=== PATIENT | female | born 1985 | race Caucasian/White ===

== ENCOUNTER 2016-07-27 22:08 | Emergency (ER) | payer OTHER ==
[2016-07-27 22:28] VITALS: BP 146/92; PULSE 75; RESP 18; TEMP 97.9; O2SAT 100
== END 2016-07-27 23:35 | disposition left against medical advice (07) | DRG 951 ==
LOC: ED 22:08
DX: Z53.9 Procedure and treatment not carried out, unspecified reason (principal)
CPT/HCPCS: 99282

== ENCOUNTER 2016-12-06 20:57 | Emergency (ER) | payer OTHER ==
[2016-12-06 21:21] VITALS: RESP 18
[2016-12-06 21:40] VITALS: TEMP 97.4; O2SAT 100
[2016-12-06 21:58] VITALS: BP 116/65; PULSE 77
== END 2016-12-06 22:03 | disposition home or self-care (01) ==
LOC: ED 20:57
DX: R00.2 Palpitations (principal)
CPT/HCPCS: 93005; 99282; 99283

== ENCOUNTER 2018-02-09 10:02 | Outpatient (CLI) | payer OTHER ==
[2016-12-06 21:40] VITALS: O2SAT 100
== END 2018-02-09 10:03 | disposition home or self-care (01) ==
LOC: CONVCARE 10:02
PROVIDERS: ATTEND Orthopaedic Surgery
DX: S92.352D Displaced fracture of fifth metatarsal bone, left foot, subsequent encounter for fracture with routine healing (principal)
CPT/HCPCS: 73630

== ENCOUNTER 2018-03-23 11:42 | Outpatient (CLI) | payer OTHER ==
[2016-12-06 21:40] VITALS: O2SAT 100
== END 2018-03-23 11:43 | disposition home or self-care (01) | DRG 561 ==
LOC: CONVCARE 11:42
PROVIDERS: ATTEND Orthopaedic Surgery
DX: S92.352D Displaced fracture of fifth metatarsal bone, left foot, subsequent encounter for fracture with routine healing (principal)
CPT/HCPCS: 73630

== ENCOUNTER 2018-04-27 11:34 | Outpatient (CLI) | payer OTHER ==
[2016-12-06 21:40] VITALS: O2SAT 100
== END 2018-04-27 11:35 | disposition home or self-care (01) | DRG 561 ==
LOC: CONVCARE 11:34
PROVIDERS: ATTEND Orthopaedic Surgery
DX: S92.352D Displaced fracture of fifth metatarsal bone, left foot, subsequent encounter for fracture with routine healing (principal)
CPT/HCPCS: 73630